=== PATIENT | male | born 1945 | race Caucasian/White ===

== ENCOUNTER 2021-03-08 07:46 | Emergency (ER) | payer MEDICARE, OTHER ==
[~2021-03-08] VITALS: Ht 175 cm; Wt 81.0 kg
--- OUTSIDE RECORDS SUMMARY | 2021-03-08 08:00 | XMS REPORT | Clinical Summary ---
Author Author [facility] Organization [facility] Address Unknown Phone Unavailable Care Team Providers Care Page Technician Name Role Phone PCP Unavailable Allergies Not on File Medications Not on file Active Problems Not on file Social History Date Tobacco Use Types Packs/Day Years Used Never Assessed Sex Assigned at Date Recorded Not on file Last Filed Vital Signs Not on file Plan of Treatment Not on file Results Not on filefrom Last 3 Months
--- NOTE | 2021-03-08 08:11 | ED Chest Pain ---
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 She states that the chest pain continued to worsen and was a 10 out of 10 when it was at its worst. 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 His did give him an 325 mg aspirin 30 minutes prior to arrival in the ED and they drove here to the emergency department. He states that the chest pain is now aching at 3 or 4 out of 10. 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 Does not radiate or move anywhere. He denies any nausea or vomiting. He denies any shortness of breath or cough. He denies having chest pain like this in the past or having heart problems that he is aware of. He denies taking any medications or having any allergies to medications. He states about a month ago he got a booster for Covid as well as pneumonia. He denies having fevers or chills. Timing/Duration: 1-3 hours (since 6 am) Severity/Quality: severe, aching (now it is an ache in his chest. 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 (325 mg aspirin at 0715) NTG SL STILL OPERATOR BATCH OR CONTINUOUS: No Associated Symptoms: No abdominal pain, No back pain, No diaphoresis, No dizziness, No edema, No fatigue, No fever/chills, No headache, No heartburn, No nausea/vomiting, No rash, No shortness of breath, No swelling/lump in chest, No syncope, No weakness (SOHEILA CHONG MD) Allergies and Home Medications Allergies Coded Allergies: No Known Drug Allergies (Unverified , 03/08/21) Patient Home Medication List Home Medication List Reviewed: Yes (SOHEILA CHONG MD) Review of Systems Review of Systems Constitutional: No chills, No fever EENTM: No Symptoms Reported Respiratory: No Symptoms Reported Cardiovascular: See HPI, Chest Pain; Denies Irregular Heart Rate, Denies Palpitations, Denies Syncope Gastrointestinal: No Symptoms Reported Genitourinary: No Symptoms Reported Musculoskeletal: no symptoms reported Skin: no symptoms reported Psychiatric/Neurological: No Symptoms Reported; Denies Numbness, Denies Paresthesia Endocrine: No Symptoms Reported (SOHEILA CHONG MD) Past Elrwool-Bnquqz-Nbzbfl Hx Patient Social History Tobacco Use?: No Smoking Status: Former Smoker (SOHEILA CHONG MD) Past Medical History Surgeries: Yes Abdominal (Horse inj to abd./intestine as child) Respiratory: No Cardiac: No Neurological: No Genitourinary: No Gastrointestinal: No Musculoskeletal: No Endocrine: No HEENT: No Psychosocial: No Integumentary: No (SOHEILA CHONG MD) Family Medical History Reviewed and Corrections made (SOHEILA CHONG MD) Heart Disease, CAD Over 55 Years Old (Parents) (SOHEILA CHONG MD) Physical Exam Vital Signs Vital Signs - First Documented 03/08/21 03/08/21 07:46 08:32 Temp 35.5 Pulse 64 Resp 18 B/P (MAP) 166/97 (120) Pulse Ox 95 O2 Delivery Room Air O2 Flow Rate 2.00 (MART MILLER DO) Vital Signs Capillary Refill : (SOHEILA CHONG MD) Height, Weight, BMI Height: '" Weight: lbs. oz. 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 Norm as Tested Skin: Normal Color, Warm/Dry (SOHEILA CHONG MD) Images 1 - central substernal cp (SOHEILA CHONG MD) Progress/Results/Core Measures Results/Orders Lab Results Laboratory Tests Test 03/08/21 08:00 03/08/21 10:46 Range/Units White Blood Count 5.6 4.3-11.0 10^3/uL Red Blood Count 4.95 4.30-5.52 10^6/uL Hemoglobin 15.6 13.3-17.7 g/dL Hematocrit 45 40-54 % Mean Corpuscular Volume 91 80-99 fL Mean Corpuscular Hemoglobin 32 25-34 pg Mean Corpuscular Hemoglobin Concent 35 32-36 g/dL Red Cell Distribution Width 13.2 10.0-14.5 % Platelet Count 247 130-400 10^3/uL Mean Platelet Volume 8.8 L 9.0-12.2 fL Immature Granulocyte % (Auto) 0 % Neutrophils (%) (Auto) 58 42-75 % Lymphocytes (%) (Auto) 31 12-44 % Monocytes (%) (Auto) 8 0-12 % Eosinophils (%) (Auto) 2 0-10 % Basophils (%) (Auto) 1 0-10 % Neutrophils # (Auto) 3.2 1.8-7.8 X 10^3 Lymphocytes # (Auto) 1.7 1.0-4.0 X 10^3 Monocytes # (Auto) 0.5 0.0-1.0 X 10^3 Eosinophils # (Auto) 0.1 0.0-0.3 10^3/uL Basophils # (Auto) 0.1 0.0-0.1 10^3/uL Immature Granulocyte # (Auto) 0.0 0.0-0.1 10^3/uL Prothrombin Time 12.9 12.2-14.7 SEC INR Comment 0.9 0.8-1.4 Activated Partial Thromboplast Time 26 24-35 SEC D-Dimer 0.43 0.00-0.49 UG/ML Sodium Level 142 135-145 MMOL/L Potassium Level 3.9 3.6-5.0 MMOL/L Chloride Level 105 98-107 MMOL/L Carbon Dioxide Level 23 21-32 MMOL/L Anion Gap 14 5-14 MMOL/L Blood Urea Nitrogen 12 7-18 MG/DL Creatinine 0.99 0.60-1.30 MG/DL Estimat Glomerular Filtration Rate 73 BUN/Creatinine Ratio 12 Glucose Level 114 H 70-105 MG/DL Calcium Level 10.0 8.5-10.1 MG/DL Corrected Calcium 9.6 8.5-10.1 MG/DL Magnesium Level 2.0 1.6-2.4 MG/DL Total Bilirubin 0.5 0.1-1.0 MG/DL Aspartate Amino Transf (AST/SGOT) 29 5-34 U/L Alanine Aminotransferase (ALT/SGPT) 19 0-55 U/L Alkaline Phosphatase 63 40-136 U/L Troponin I < 0.30 < 0.30 <0.30 NG/ML Pro-B-Type Natriuretic Peptide 69.8 <75.0 PG/ML Total Protein 7.2 6.4-8.2 GM/DL Albumin 4.5 3.2-4.5 GM/DL Lipase 32 8-78 U/L (MART MILLER DO) My Orders Orders - MART MILLER DO Troponin I Fs (03/08/21 10:43) Nitroglycerin Ointment (Nitrobid Ointme (03/08/21 12:00) (MART MILLER DO) Medications Given in ED Current Medications Medications Dose Ordered Sig/[place] Route Start Time Stop Time Status Last Admin Dose Admin Iohexol 100 ml ONCE ONCE IV 03/08/21 09:00 03/08/21 09:01 DC 03/08/21 09:37 100 ML Morphine Sulfate 2 mg ONCE ONCE IVP 03/08/21 08:15 03/08/21 08:16 DC 03/08/21 08:14 2 MG Nitroglycerin 0.4 mg UD PRN SL 03/08/21 08:15 03/08/21 08:35 0.4 MG Nitroglycerin 1 inch ONCE ONCE TOP 03/08/21 12:00 03/08/21 12:01 DC 03/08/21 12:02 1 INCH Sodium Chloride 10 ml NEEDED PRN IV 03/08/21 09:00 03/08/21 09:38 10 ML Sodium Chloride 100 ml ONCE ONCE IV 03/08/21 09:00 03/08/21 09:01 DC 03/08/21 09:38 100 ML (MART MILLER DO) Vital Signs/I&O 03/08/21 03/08/21 07:46 08:32 Temp 35.5 Pulse 64 Resp 18 B/P (MAP) 166/97 (120) Pulse Ox 95 94 O2 Delivery Room Air Nasal Cannula O2 Flow Rate 2.00 (MART MILLER DO) Progress Progress Note #1: Progress Note Electrocardiogram obtained on arrival to the room. This did not demonstrate any acute ST elevation. Patient did receive 325 mg of aspirin approximately 30 minutes prior to arrival in the ED. He is reporting his pain is at a 3 or 4 out of 10 so will try sublingual nitroglycerin to see if that helps with both slightly elevated blood pressure as well as his complaint of chest pain. Obtain blood work as well as the electrocardiogram and chest x-ray to further evaluate his complaint of chest pain. Cardiac telemetry monitoring to observe his cardiac rhythm and monitor for arrhythmias or acute changes in his telemetry. Differential diagnosis includes acute coronary syndrome, myocardial infarction, aortic aneurysm, pulmonary embolism, hypertensive urgency Progress Note #2: Time: 08:45 Progress Note The chest x-ray did not demonstrate any acute effusion or infiltrate however it appeared that his aorta was possibly tortuous on my review of the film. I added a CT angiogram to evaluate his aorta and pulmonary arteries. He did have an oxygen saturation drop into the upper 80s so he was placed on O2 at 3 L/min to bring him up above 91%. He denied any shortness of breath with this. He was given a second sublingual nitroglycerin at 8:35 AM since his chest pain and gone from 4 down to 2 with the first sublingual nitroglycerin. He had no acute abno rmality on his CBC. Awaiting electrolytes and coags with D-dimer. He denies any calf pain however with his oxygen desaturation and tortuous appearing aorta on my review of his chest x-ray I still will order a CT angiogram. Care of the patient was reviewed and passed over to Dr. Miller at shift change. (SOHEILA CHONG MD) Initial ECG Impression Date: Mar 08, 2021 Initial ECG Impression Time: 07:49 Initial ECG Rate: 55 Initial ECG Rhythm: Normal Sinus Initial ECG Comparisson: No Previous ECG Available Comment Normal sinus rhythm with a heart rate of 55 bpm. Borderline left axis deviation. HI interval 188 ms. QT interval 426 ms with a QTc interval 408 ms. No prior tracing available for comparison. No acute ST elevations. (SOHEILA CHONG MD) Diagnostic Imaging Diagonstic Imaging: Xray Plain Films/CT/US/NM/MRI: chest Comments NAME: JUAN PRIETO [facility] REC#: [id number] PT STATUS: REG ER : 1945 PHYSICIAN: SOHEILA CHONG MD ADMIT DATE: 03/08/21/ER FS Draft Date of Exam:03/08/21 CHEST 1 VIEW AP/PA ONLY EXAMINATION: Chest 1 view HISTORY: Substernal chest pain COMPARISON: None available. FINDINGS: The lungs are clear without edema or pneumonia. No pleural effusion or pneumothorax. Heart size is normal. IMPRESSION: 1. Clear lungs. Dictated on workstation # [id number] Dict: 03/08/21 0812 Trans: 03/08/21 0816 [facility] [id number] Interpreted by: JUANITA DELGADO MD Electronically signed by: Reviewed: Reviewed by Ms Diagonstic Imaging: CT (Angiography) Plain Films/CT/US/NM/MRI: chest Comments [facility] [place] NAME: JUAN PRIETO [facility] REC#: [id number] PT STATUS: DEP ER : 1945 PHYSICIAN: SOHEILA CHONG MD ADMIT DATE: 03/08/21/ER FS Signed Date of Exam:03/08/21 CT ANGIO CHEST W PROCEDURE: CT angiography of the chest with contrast. TECHNIQUE: Multiple contiguous axial images were obtained through the chest after uneventful bolus administration of intravenous contrast. 3D reconstructed CTA MIP acquisitions were also performed. Auto Exposure Controls were utilized during the CT exam to meet ALARA standards for radiation dose reduction. INDICATION: Substernal chest pain. COMPARISON: None FINDINGS: There is no intraluminal filling defect within the pulmonary arteries to the level of the 1st subsegmental division. Thoracic aorta is suboptimally opacified. There is mild scattered calcified atherosclerosis, but based on NASCET criteria, there is no focal significant stenosis. There is no convincing evidence of dissection. Ascending thoracic aorta is aneurysmally dilated, as it measures 4.7 cm in diameter. Heart size is within normal limits. There is no large pericardial effusion. There is mild scattered calcified coronary atherosclerosis. No pathologically enlarged or morphologically abnormal adenopathy is seen within the mediastinum, lori, nor axilla. Evaluation of the lung medrano demonstrates no acute abnormality. Lungs are clear. There is no focal consolidation, large effusion, no pneumothorax. No suspicious pulmonary nodules or masses are seen. Osseous structures show no acute abnormalities. Age-related degenerative changes are noted. Included portions of the upper abdomen show no additional acute abnormalities. IMPRESSION: 1. No acute pulmonary embolus. 2. No other acute cardiopulmonary process. 3. Aneurysmal dilatation of the ascending thoracic aorta. Dictated by: Dictated on workstation # [id number] Dict: 03/08/21915 Trans: 03/09/21816 [facility] [id number] Interpreted by: BENJAMIN DIAS MD Electronically signed by: BENJAMIN DIAS MD 03/09/21816 Reviewed: Reviewed by Me (SOHEILA CHONG MD) Transfer of Care Time: 08:45 Care transferred to: Dr. Mart Miller (SOHEILA CHONG MD) Departure Communication (Admissions) CTA chest: No findings of PE, thoracic aneurysm noted per radiology report. Care assumed from preceding ER provider. I reviewed H&P, lab, EKG and imaging and agree with previous assessment. Patient with atypical chest pain, hypoxia and shortness of breath. No findings of PE on CT. Repeat troponin negative. Possible incidental thoracic aortic aneurysm, D-dimer negative. Low index of suspicion for dissection, but still not fully excluded at this time. Patient is bradycardic and hypertensive. Nitropaste given. Anticipate admission/transfer to closest comprehensive cardiac care facility. Patient accepted by Dr. Palomo to [facility] at 14:00 (MART MILLER DO) Impression Primary Impression: Substernal chest pain Additional Impressions: Acute respiratory failure with hypoxia Thoracic aneurysm without mention of rupture Bradycardia Family history of coronary artery disease Disposition: [facility] Condition: Stable Transfer Transfer Facility: [place], [place] Method of Transfer: EMS (SOHEILA CHONG MD) Transfer Reason: Exceeds level of care Time Spoke to Accepting Phy: 14:00 Transfer Progress Notes Patient accepted to [facility] (MART MILLER DO) Departure-Patient Inst. Referrals: CHAD MIRZA MD (PCP) Primary Care Physician SOHEILA CHONG MD Mar 08, 2021 08:11 MART MILLER DO Mar 08, 2021 12:05
[2021-03-08 08:12] LABS: WHITE BLOOD COUNT 5.6 10^3/uL (4.3-11.0)
[2021-03-08 08:13] LABS: BASOPHILS % (AUTO) 1 % (0-10); EOSINOPHILS % (AUTO) 2 % (0-10); HEMATOCRIT 45 % (40-54); HEMOGLOBIN 15.6 g/dL (13.3-17.7); LYMPHOCYTES % (AUTO) 31 % (12-44); MEAN CORPUSCULAR HEMOGLOBIN 32 pg (25-34); MEAN CORPUSCULAR HGB CONC 35 g/dL (32-36); MEAN CORPUSCULAR VOLUME 91 fL (80-99); MEAN PLATELET VOLUME 8.8 fL (9.0-12.2); MONOCYTES % (AUTO) 8 % (0-12); NEUTROPHILS % (AUTO) 58 % (42-75); PLATELET COUNT 247 10^3/uL (130-400)
[2021-03-08 08:14] LABS: BASOPHILS # (AUTO) 0.1 10^3/uL (0.0-0.1); EOSINOPHILS # (AUTO) 0.1 10^3/uL (0.0-0.3); LYMPHOCYTES # (AUTO) 1.7 X 10^3 (1.0-4.0); MONOCYTES # (AUTO) 0.5 X 10^3 (0.0-1.0); NEUTROPHILS # (AUTO) 3.2 X 10^3 (1.8-7.8)
[2021-03-08] MEDS: NITROGLYCERIN 0.4 MG SL TABS BTL 25'S SL PRN ×2 (08:14→08:35)
[2021-03-08] MEDS ORDERED: morphine INJ 10 MG/ML 1ML (SYR OR VIAL) IVP ONE (08:15)
--- NOTE | 2021-03-08 08:17 | Diagnostic Imaging Report ---
EXAMINATION: Chest 1 view HISTORY: Substernal chest pain COMPARISON: None available. FINDINGS: The lungs are clear without edema or pneumonia. No pleural effusion or pneumothorax. Heart size is normal. IMPRESSION: 1. Clear lungs. Dictated by: Dictated on workstation # [id number]
[2021-03-08 08:24] LABS: INR 0.9 (0.8-1.4); PROTHROMBIN TIME PATIENT 12.9 SEC (12.2-14.7)
[2021-03-08 08:56] LABS: BILIRUBIN,TOTAL 0.5 MG/DL (0.1-1.0); CREATININE SERUM 0.99 MG/DL (0.60-1.30); POTASSIUM 3.9 MMOL/L (3.6-5.0)
[2021-03-08 08:57] LABS: ALBUMIN 4.5 GM/DL (3.2-4.5); TOTAL PROTEIN 7.2 GM/DL (6.4-8.2)
[2021-03-08] MEDS ORDERED: IOHEXOL 350 MG/ML 100 ML (OMNIPAQUE 350) VIAL IV ONE (09:00)
[2021-03-08] MEDS ORDERED: HOLD METFORMIN - RECEIVED CONTRAST 20 ML VIAL IV SCH (09:00)
[2021-03-08] MEDS ORDERED: NS 100 ML (IVPB) BAG IV ONE (09:00)
[2021-03-08] MEDS ORDERED: CATHETER FLUSH 10 ML SYR IV PRN (09:00)
--- NOTE | 2021-03-08 09:22 | Diagnostic Imaging Report ---
PROCEDURE: CT angiography of the chest with contrast. TECHNIQUE: Multiple contiguous axial images were obtained through the chest after uneventful bolus administration of intravenous contrast. 3D reconstructed CTA MIP acquisitions were also performed. Auto Exposure Controls were utilized during the CT exam to meet ALARA standards for radiation dose reduction. INDICATION: Substernal chest pain. COMPARISON: None FINDINGS: There is no intraluminal filling defect within the pulmonary arteries to the level of the 1st subsegmental division. Thoracic aorta is suboptimally opacified. There is mild scattered calcified atherosclerosis, but based on NASCET criteria, there is no focal significant stenosis. There is no convincing evidence of dissection. Ascending thoracic aorta is aneurysmally dilated, as it measures 4.7 cm in diameter. Heart size is within normal limits. There is no large pericardial effusion. There is mild scattered calcified coronary atherosclerosis. No pathologically enlarged or morphologically abnormal adenopathy is seen within the mediastinum, lori, nor axilla. Evaluation of the lung medrano demonstrates no acute abnormality. Lungs are clear. There is no focal consolidation, large effusion, no pneumothorax. No suspicious pulmonary nodules or masses are seen. Osseous structures show no acute abnormalities. Age-related degenerative changes are noted. Included portions of the upper abdomen show no additional acute abnormalities. IMPRESSION: 1. No acute pulmonary embolus. 2. No other acute cardiopulmonary process. 3. Aneurysmal dilatation of the ascending thoracic aorta. Dictated by: Dictated on workstation # [id number]
[2021-03-08] MEDS ORDERED: NITROGLYCERIN 2% OINT 1 GM UNIT DOSE PACKET TOP ONE (12:00)
[2021-03-08 14:55] VITALS: BP 129/77
== END 2021-03-08 16:02 | disposition short-term general hospital (02) ==
LOC: ER FS 07:57
DX: R07.89 Other chest pain (principal); J96.01 Acute respiratory failure with hypoxia; I71.2 Thoracic aortic aneurysm, without rupture; R00.1 Bradycardia, unspecified; Z87.891 Personal history of nicotine dependence; Z82.49 Family history of ischemic heart disease and other diseases of the circulatory system
CPT/HCPCS: 36415; 71045; 71275; 80053; 83690; 83735; 83880; 84484; 85025; 85379; 85610; 85730; 93005; 93041; 96374

== ENCOUNTER 2021-04-01 17:07 | Emergency (ER) | payer MEDICARE ==
[~2021-04-01] VITALS: Ht 175.2 cm; Wt 75.0 kg
[2021-04-01 18:14] VITALS: BP 122/72
[2021-04-01] MEDS ORDERED: NS IV 1000 ML 1,000 ML IV SCH ×2 (18:15→22:45)
--- NOTE | 2021-04-01 18:38 | Diagnostic Imaging Report ---
EXAM: Chest 1 view, AP/PA only INDICATION: Fever. Abdominal aortic aneurysm surgery. COMPARISON: 03/08/2021. FINDINGS: Low lung volumes. Cardiomegaly. Normal pulmonary vascularity. Sternotomy with CABG. Elevation of the left hemidiaphragm. Mild atelectasis or infiltrate in the left lung base. No pleural effusion or pneumothorax. IMPRESSION: Low lung volumes with elevation of the left hemidiaphragm. Left basilar atelectasis or infiltrate. Dictated by: Dictated on workstation # [id number]
[2021-04-01 18:39] LABS: BILIRUBIN,URINE NEGATIVE (NEGATIVE); CLARITY,URINE CLEAR; COLOR,URINE YELLOW; GLUCOSE, URINE (UA) NEGATIVE (NEGATIVE); KETONES,URINE NEGATIVE (NEGATIVE); LEUKOCYTE ESTERASE ,URINE NEGATIVE (NEGATIVE); NITRITE,URINE NEGATIVE (NEGATIVE); PROTEIN,URINE NEGATIVE (NEGATIVE)
[2021-04-01 18:49] LABS: BASOPHILS # (AUTO) 0.1 10^3/uL (0.0-0.1); BASOPHILS % (AUTO) 1 % (0-10); EOSINOPHILS % (AUTO) 0 % (0-10); HEMATOCRIT 40 % (40-54); HEMOGLOBIN 12.2 g/dL (13.3-17.7); LYMPHOCYTES # (AUTO) 0.4 10^3/uL (1.0-4.0); LYMPHOCYTES % (AUTO) 9 % (12-44); MEAN CORPUSCULAR HEMOGLOBIN 29 pg (25-34); MEAN CORPUSCULAR HGB CONC 31 g/dL (32-36); MEAN CORPUSCULAR VOLUME 94 fL (80-99); MEAN PLATELET VOLUME 8.3 fL (9.0-12.2); MONOCYTES # (AUTO) 0.3 10^3/uL (0.0-1.0); MONOCYTES % (AUTO) 7 % (0-12); NEUTROPHILS # (AUTO) 3.8 10^3/uL (1.8-7.8); NEUTROPHILS % (AUTO) 82 % (42-75); PLATELET COUNT 327 10^3/uL (130-400); WHITE BLOOD COUNT 4.6 10^3/uL (4.3-11.0)
[2021-04-01 18:50] LABS: BACTERIA,URINE NEGATIVE /HPF; WBC,URINE 0-2 /HPF
[2021-04-01 18:55] LABS: ALBUMIN 3.9 GM/DL (3.2-4.5); POTASSIUM 5.2 MMOL/L (3.6-5.0)
[2021-04-01 18:56] LABS: CALCIUM 9.4 MG/DL (8.5-10.1)
[2021-04-01] MEDS ORDERED: ACETAMINOPHEN 325 MG TABLET PO STA (18:56)
[2021-04-01 18:58] LABS: TOTAL PROTEIN 8.1 GM/DL (6.4-8.2)
[2021-04-01 18:59] LABS: BILIRUBIN,TOTAL 0.9 MG/DL (0.1-1.0)
[2021-04-01 19:01] LABS: CREATININE SERUM 1.11 MG/DL (0.60-1.30)
[2021-04-01 19:14] LABS: INR 1.2 (0.8-1.4); PROTHROMBIN TIME PATIENT 15.6 SEC (12.2-14.7)
--- NOTE | 2021-04-01 19:28 | ED General ---
General Chief Complaint: General Problems/Pain Stated Complaint: OPEN HEART SURG,FEVER,DX PNA Nursing Triage Note: TO ED PER W/C WITH DAUGHTER IN LAW REPORTS ON MAR 12 HAD TRIPLE A REPAIR AT [facility] AND [facility]. WAS DISCHARGE ON MAR 22 AT DAY 6 HAD POS SPUTUM CULTURE HAD IV ANTIBIOTICS WAS SENT HOME WITH BACTRIM. CALLED DR MOBILE SALES CONSULTANT AT [facility] WAS TOLD TO COME HERE TO BE SEEN. (SALOME FITZPATRICK) History of Present Illness Date Seen by Provider: Apr 01, 2021 Time Seen by Provider: 18:20 Initial Comments 75-year-old male presents for shortness of breath, SaO2 in upper 80s when ambulating, and fever. No tylenol or ibuprofen were given DYNAMICIST. He was treated at [facility] for a thoracic AA on March 12 his sputum came back with bacterial growth and he was started on vancomycin he was discharged on March 22 on Bactrim twice daily, last dose was taken this morning. He was supposed to have labs drawn 3 days ago but they were unable to obtain blood for his CBC. His family attempted to contact the cardiothoracic surgeon at [facility] and he was referred to come here for work-up. He is taking aspirin 81 mg once daily and is not on anticoagulants. He received his COVID vaccines in May and booster in Jan. Flu vaccine in Jan. He was around family for holidays. Timing/Duration: 4-6 Hours Severity: Moderate Associated Systoms: No Chest Pain, No Cough; Fever/Chills; No Nausea/Vomiting (SALOME FITZPATRICK) Allergies and Home Medications Allergies Coded Allergies: No Known Drug Allergies (Unverified , 03/08/21) Patient Home Medication List Home Medication List Reviewed: Yes (SALOME FITZPATRICK) Azithromycin (Azithromycin) 250 Mg Tablet, 250 MG PO UD Prescribed by: SALOME FITZPATRICK on 04/01/21 3396 Doxycycline Hyclate (Doxycycline Hyclate) 100 Mg Tablet, 100 MG PO BID Prescribed by: SALOME FITZPATRICK on 04/01/21 7842 Review of Systems Review of Systems Constitutional: see HPI, chills, fever, malaise EENTM: see HPI, no symptoms reported Respiratory: see HPI, dyspnea on exertion Cardiovascular: no symptoms reported, see HPI; No chest pain Gastrointestinal: no symptoms reported, see HPI (SALOME FITZPATRICK) All Other Systems Reviewed Negative Unless Noted: Yes (SALOME FITZPATRICK) Past Imdlczv-Bpyged-Wxumiy Hx Patient Social History Tobacco Use?: No Alcohol Use?: No (SALOME FITZPATRICKP) Immunizations Up To Date First/Initial COVID19 Vaccinat: MAY Second COVID19 Vaccination Amado: MAY (SALOME FITZPATRICK) Past Medical History Surgeries: Yes Abdominal Respiratory: No Currently Using CPAP: No Currently Using BIPAP: No Cardiac: No Aneurysm Neurological: No Genitourinary: No Gastrointestinal: No Musculoskeletal: No Endocrine: No HEENT: No Psychosocial: No Integumentary: No (SALOME FITZPATRICKP) Family Medical History Reviewed Nursing Family Hx (SALOME FITZPATRICK GILMAR) Heart Disease, CAD Over 55 Years Old (SALOME FITZPATRICK GILMAR) Physical Exam Vital Signs Vital Signs - First Documented 04/01/21 18:14 Temp 38.4 Pulse 81 B/P (MAP) 122/72 (89) Pulse Ox 97 (ESME ROSS DO) Vital Signs Capillary Refill : Less Than 3 Seconds (SALOME FITZPATRICK) Height, Weight, BMI Height: '" Weight: lbs. oz. kg; 24.00 BMI Method: General Appearance: WD/WN, Cachetic HEENT: PERRL/EOMI, TMs Normal, Normal ENT Inspection, Pharynx Normal Neck: Full Range of Motion, Normal Inspection, Non Tender, Supple Respiratory: Chest Non Tender, Lungs Clear, Normal Breath Sounds, No Respiratory Distress, Decreased Breath Sounds Cardiovascular: Regular Rate, Rhythm, No Edema, No Murmur, Normal Peripheral Pulses Gastrointestinal: Normal Bowel Sounds, Non Tender, Soft Extremity: Normal Capillary Refill, Normal Inspection, Normal Range of Motion, Non Tender Neurologic/Psychiatric: Alert, Oriented x3, No Motor/Sensory Deficits, Normal Mood/Affect Skin: Normal Color, Warm/Dry, Other (chest incision well healed with no erythem, warmth or drainage. ) (SALOME FITZPATRICK GILMAR) Focused Exam Lactate Level 04/01/21 18:50: Lactic Acid Level 1.21 (ESME ROSS DO) Lactic Acid Level Laboratory Tests Test 04/01/21 18:50 Lactic Acid Level 1.21 MMOL/L (0.50-2.00) (ESME ROSS DO) Progress/Results/Core Measures Suspected Sepsis SIRS Temperature: Pulse: 81 Respiratory Rate: Laboratory Tests 1/2/22 18:38: White Blood Count 4.6 Blood Pressure 122 /72 Mean: 89 04/01/21 18:50: Lactic Acid Level 1.21 Laboratory Tests 04/01/21 18:38: Creatinine 1.11, Platelet Count 327, Total Bilirubin 0.9 04/01/21 18:50: INR Comment 1.2 (NANETTE,SALOME FOSTER CARE WORKER) Results/Orders Lab Results Laboratory Tests Test 04/01/21 18:36 04/01/21 18:38 04/01/21 18:48 04/01/21 18:50 Range/Units Urine Color YELLOW Urine Clarity CLEAR Urine pH 6.0 5-9 Urine Specific [place] >=1.030 1.016-1.022 Urine Protein NEGATIVE NEGATIVE Urine Glucose (UA) NEGATIVE NEGATIVE Urine Ketones NEGATIVE NEGATIVE Urine Nitrite NEGATIVE NEGATIVE Urine Bilirubin NEGATIVE NEGATIVE Urine Urobilinogen 1.0 < = 1.0 MG/DL Urine Leukocyte Esterase NEGATIVE NEGATIVE Urine RBC (Auto) TRACE-I H NEGATIVE Urine RBC NONE /HPF Urine WBC 0-2 /HPF Urine Squamous Epithelial Cells NONE /HPF Urine Renal Epithelial Cells NONE /HPF Urine Crystals NONE /LPF Urine Bacteria NEGATIVE /HPF Urine Casts NONE /LPF Urine Mucus MODERATE H /LPF Urine Culture Indicated CULTURE PENDING White Blood Count 4.6 4.3-11.0 10^3/uL Red Blood Count 4.23 L 4.30-5.52 10^6/uL Hemoglobin 12.2 L 13.3-17.7 g/dL Hematocrit 40 40-54 % Mean Corpuscular Volume 94 80-99 fL Mean Corpuscular Hemoglobin 29 25-34 pg Mean Corpuscular Hemoglobin Concent 31 L 32-36 g/dL Red Cell Distribution Width 14.8 H 10.0-14.5 % Platelet Count 327 130-400 10^3/uL Mean Platelet Volume 8.3 L 9.0-12.2 fL Immature Granulocyte % (Auto) 1 % Neutrophils (%) (Auto) 82 H 42-75 % Lymphocytes (%) (Auto) 9 L 12-44 % Monocytes (%) (Auto) 7 0-12 % Eosinophils (%) (Auto) 0 0-10 % Basophils (%) (Auto) 1 0-10 % Neutrophils # (Auto) 3.8 1.8-7.8 10^3/uL Lymphocytes # (Auto) 0.4 L 1.0-4.0 10^3/uL Monocytes # (Auto) 0.3 0.0-1.0 10^3/uL Eosinophils # (Auto) 0.0 0.0-0.3 10^3/uL Basophils # (Auto) 0.1 0.0-0.1 10^3/uL Immature Granulocyte # (Auto) 0.0 0.0-0.1 10^3/uL Sodium Level 136 135-145 MMOL/L Potassium Level 5.2 H 3.6-5.0 MMOL/L Chloride Level 104 98-107 MMOL/L Carbon Dioxide Level 19 L 21-32 MMOL/L Anion Gap 13 5-14 MMOL/L Blood Urea Nitrogen 19 H 7-18 MG/DL Creatinine 1.11 0.60-1.30 MG/DL Estimat Glomerular Filtration Rate 64 BUN/Creatinine Ratio 17 Glucose Level 105 70-105 MG/DL Calcium Level 9.4 8.5-10.1 MG/DL Corrected Calcium 9.5 8.5-10.1 MG/DL Total Bilirubin 0.9 0.1-1.0 MG/DL Aspartate Amino Transf (AST/SGOT) 47 H 5-34 U/L Alanine Aminotransferase (ALT/SGPT) 19 0-55 U/L Alkaline Phosphatase 63 40-136 U/L Troponin I 0.042 H <0.028 NG/ML C-Reactive Protein High Sensitivity 3.99 H 0.00-0.50 MG/DL B-Type Natriuretic Peptide 437.1 H <100.0 PG/ML Total Protein 8.1 6.4-8.2 GM/DL Albumin 3.9 3.2-4.5 GM/DL Influenza Type A Antigen NEGATIVE NEGATIVE Influenza Type B Antigen NEGATIVE NEGATIVE SARS-CoV-2 RNA (RT-PCR) Not Detected Negative Prothrombin Time 15.6 H 12.2-14.7 SEC INR Comment 1.2 0.8-1.4 Activated Partial Thromboplast Time 31 24-35 SEC D-Dimer 8.77 H 0.00-0.49 UG/ML Lactic Acid Level 1.21 0.50-2.00 MMOL/L (INES ROSSA Dori DO) Medications Given in ED Current Medications Medications Dose Ordered Sig/[place] Route Start Time Stop Time Status Last Admin Dose Admin Cefepime HCl 1000 mg/Sodium Chloride 50 ml @ 100 mls/hr ONCE ONCE IV 04/01/21 20:45 04/01/21 21:14 DC 04/01/21 20:42 100 MLS/HR Iohexol 150 ml ONCE ONCE IV 04/01/21 20:30 04/01/21 20:31 DC 04/01/21 20:54 67 ML Iohexol 150 ml ONCE ONCE IV 04/01/21 23:45 04/01/21 23:46 DC 04/01/21 23:39 75 ML Sodium Chloride 10 ml NEEDED PRN IV 04/01/21 20:30 04/02/21 00:19 DC 04/01/21 23:39 10 ML Sodium Chloride 100 ml ONCE ONCE IV 04/01/21 20:30 04/01/21 20:31 DC 04/01/21 20:54 80 ML Sodium Chloride 100 ml ONCE ONCE IV 04/01/21 23:45 04/01/21 23:46 DC 04/01/21 23:39 80 ML (CODY,ESME K DO) Vital Signs/I&O 04/01/21 18:14 Temp 38.4 Pulse 81 B/P (MAP) 122/72 (89) Pulse Ox 97 (CODY,ESME K DO) Vital Signs/I&O Capillary Refill : Less Than 3 Seconds (SALOME FITZPATRICK) Blood Pressure Mean: 89 Progress Note : Time: 18:20 Progress Note Patient seen and evaluated, will obtain labs, chest x-ray, EKG, Covid and flu testing, Tylenol 650 mg orally for fever, normal saline 1 L per IV. Sepsis work- up initiated. 1909 Temp down to 37.8, HR 80s, B/P 110/70s 1999 no complaints, labs show elevated D Dimer 8.77 and slight elevation in Troponin. Will get CT angio chest and abd. Flu and COVID neg. Cefepime IV for pneumonia [address] Dow from Radiology, due to fluid around repair site, he would like to get post contrast CT images to determine if extravisation is present or not. Discussed with patient and family, agreeable. [address] Dow, no leakage of contrast at repair site. Would need CT angio with PE protocol to be 100% certain. Creatinine 1.11, will give NS 1 L per IV. [address] Mistry, he reviewed the CTA that was clouded, discussed labs and assessment. Would like to proceed with the CTA chest for PE. Otherwise, antibiotics for Pneumonia and evaluate in his office tomorrow at 10:00 am. discussed with patient and family, agreeable to this. VS have remained stable, SaO2 92-96% on RA, no complaints. [address] 04/02/[address] isabel chest neg for PE. Discharge instructions and return precautions reviewed with the patient and family. All questions answered. (SALOME FITZPATRICK) ECG Initial ECG Impression Date: Apr 01, 2021 Initial ECG Impression Time: 19:40 Initial ECG Rate: 79 Initial ECG Rhythm: Normal Sinus Initial ECG Intervals: Normal Initial ECG Intervals [place] 172, QRSD 110, QT 361, QTc 414. [place] P- 1, QRS -20, T- 43. Initial ECG Impression: Normal Initial ECG Comparisson: Unchanged (SALOME FITZPATRICK) Diagnostic Imaging Diagonstic Imaging: Xray Plain Films/CT/US/NM/MRI: chest Comments NAME: JUAN PRIETO [facility] REC#: [id number] PT STATUS: REG ER : 1945 PHYSICIAN: SALOME FITZPATRICK ADMIT DATE: 04/01/21/ER Signed Date of Exam:04/01/21 CHEST 1 VIEW, AP/PA ONLY EXAM: Chest 1 view, AP/PA only INDICATION: Fever. Abdominal aortic aneurysm surgery. COMPARISON: 03/08/2021. FINDINGS: Low lung volumes. Cardiomegaly. Normal pulmonary vascularity. Sternotomy with CABG. Elevation of the left hemidiaphragm. Mild atelectasis or infiltrate in the left lung base. No pleural effusion or pneumothorax. IMPRESSION: Low lung volumes with elevation of the left hemidiaphragm. Left basilar atelectasis or infiltrate. Dictated by: Dictated on workstation # [id number] Dict: 04/01/211834 Trans: 04/01/211909 PJE [id number] Interpreted by: YENNIFER LOTT MD Electronically signed by: YENNIFER LOTT MD 04/01/211909 Reviewed: Reviewed by De Diagonstic Imaging: CT Plain Films/CT/US/NM/MRI: chest, abdomen Comments NAME: JUAN PRIETO [facility] REC#: [id number] PT STATUS: REG ER : 1945 PHYSICIAN: SALOME FITZPATRICK ADMIT DATE: 04/01/21/ER Signed Date of Exam:04/01/21 CT ANGIO CHEST/ABD W Clinical indication: Patient had surgery March 12, having chest pain. Questionable aortic dissection. Patient has back pain. Exam: CT angiogram of the chest and abdomen performed with 67 cc Omnipaque 350 IV contrast. Coronal and oblique MIP images of the vasculature were created to better evaluate anatomy. Auto Exposure Controls were utilized during the CT exam to meet ALARA standards for radiation dose reduction. Comparison: CT angiogram of the chest dated 03/08/2021. Findings: Chest: There are interval postoperative changes with ascending thoracic aortic aneurysm repair. There is a moderate amount of fluid around the ascending thoracic aorta. There is high density in the region of the graft of the aortic arch with some area of irregularity involving the right anterior aspect of the aortic arch. Delayed imaging of the chest was performed and this area is stable and likely represents graft material and not contrast extravasation. There is no evidence of contrast extravasation on delayed imaging. There is fat stranding in the mediastinal region. There is no evidence of dissection of the thoracic aorta. The celiac artery, SMA, bilateral renal arteries, and AYLEEN show no significant stenosis. Abdominal aorta is nonaneurysmal with no dissection. Bilateral common carotid arteries are patent. There is patchy consolidation involving the left lung base with volume loss. There is a small left pleural effusion. There is bibasilar atelectasis and/or infiltrates (left side more than the right). Motion artifact limits evaluation of the lungs. There are multiple lymph nodes in the mediastinum region seen. Largest one measures 1.3 cm x 2.2 cm in the low right paratracheal region. Patient was noted to have prominent lymph nodes on the prior study. There is no significant axillary lymphadenopathy. There are degenerative spurs involving the thoracic spine. The liver, spleen, pancreas, gallbladder and adrenal glands are unremarkable. Again seen are bilateral renal cysts. Both kidneys show no other significant abnormality. There is no intestinal obstruction. There is no intra-abdominal free air or free fluid, as visualized. There is no significant abdominal lymphadenopathy. There are degenerative spurs involving the lumbar spine. Impression: 1: There are interval postoperative changes with repair of ascending thoracic aortic aneurysm. Sternotomy wires are seen and fat stranding in the mediastinum is noted which is expected postoperatively. 2: There is a moderate amount of fluid about the ascending thoracic aorta with no evidence of contrast opacification or contrast leak. This should be followed on subsequent CT angiogram with and without contrast imaging in one month to ensure that it eventually decreases in size. 3: There is a small left pleural effusion and bibasilar atelectasis and/or infiltrate (left side more than the right). 4: The abdominal aorta, thoracic aorta and remainder of the visualized intra-abdominal vasculature structures show no evidence of aneurysm or dissection. 5: There is no acute abdominal process seen. Results of this report discussed with GILMAR Child near the time of this exam. Dictated by: Dictated on workstation # [id number] Dict: 04/01/212110 Trans: 04/01/212244 [facility] [id number] Interpreted by: LALI DOW MD Electronically signed by: LALI DOW MD 04/01/212244 Reviewed: Discussed w/Radiologist, Reviewed/Discussed (with Dr. Mistry at [facility].) Diagonstic Imaging: CT Plain Films/CT/US/NM/MRI: chest Comments NAME: JUAN PRIETO [facility] REC#: [id number] PT STATUS: REG ER : 1945 PHYSICIAN: SALOME FITZPATRICK ADMIT DATE: 04/01/21/ER Draft Date of Exam:04/01/21 CT ANGIO CHEST W Clinical indication: Patient with chest and back pain. Patient with bypass surgery on 03/12/2021. Pulmonary embolism suspected, high suspicion. Exam: CT angiogram of the chest performed with 75 cc Omnipaque 350 IV contrast. Coronal and oblique MIP images of the vasculature were created to better evaluate anatomy. Auto Exposure Controls were utilized during the CT exam to meet ALARA standards for radiation dose reduction. Comparison: CT angiogram of the chest and abdomen dated 04/01/2021. Findings: There is significant motion artifact which limits evaluation of the pulmonary arteries, lung medrano and mediastinal structures. The right and left main pulmonary arteries, bilateral subsegmental pulmonary arteries are patent with no evidence of pulmonary embolism. The proximal subsegmental pulmonary arteries are patent. The more distal pulmonary arteries are obscured and unable to evaluate the more distal pulmonary arteries for pulmonary embolism due to the motion artifact. Stable appearance of the mediastinum with postop changes and sternotomy wires. There is moderate amount of fluid adjacent to the ascending thoracic aorta with no evidence of contrast opacification. Ascending thoracic aorta aneurysm repair is noted. It is better described on comparison CT angiogram. Again noted small left pleural effusion and patchy consolidation in periphery of both lung bases with left side worse than right. There is no pneumothorax. Stable mediastinal lymphadenopathy. IMPRESSION: 1: Limited exam due to motion artifact which limits evaluation of mediastinal structures, lungs and pulmonary arteries. There is no gross evidence of pulmonary embolism seen on this exam. 2: Postop change to the chest with ascending thoracic aortic aneurysm repair. There is no evidence of contrast leakage and the moderate amount of fluid adjacent to the ascending thoracic aortic arch. 3: Patchy airspace opacities in both lung bases which may represent atelectasis versus infiltrate (left side more than the right). Stable small left pleural effusion. Dictated on workstation # [id number] Dict: 04/01/21 2347 Trans: 04/02/21 0001 ORIN [id number] Interpreted by: LALI DOW MD Electronically signed by: (SALOME FITZPATRICK) Departure Impression Primary Impression: H/O thoracic aortic aneurysm repair Additional Impression: Pneumonia Qualified Codes: J18.9 - Pneumonia, unspecified organism Disposition: HOME, SELF-CARE Condition: Stable Departure-Patient Inst. Decision time for Depature: 00:10 (SALOME FITZPARTICK) Referrals: CHAD MIRZA MD (PCP/Family) Primary Care Physician Patient Instructions: Pneumonia, Adult (DC) Add. Discharge Instructions: continue all home medications as prescribed at time of discharge from [facility]. See Dr. Sierra at [facility] 10:00 am Friday04/02/21, take lab and CT reports. Start the Doxycycline and Zpak tomorrow, for pneumonia. Follow up with Primary Care Provider, if symptoms are not improving or worsen. Return to the Emergency Dept for new, urgent health care needs. All discharge instructions reviewed with patient and/or family. Voiced understanding. Scripts Azithromycin (Azithromycin) 250 Mg Tablet 250 MG PO UD, #6 TAB TAKE 2 TABLETS ON DAY ONE THEN TAKE 1 TABLET DAILY FOR FOUR MORE DAYS Prov: SALOME FITZPATRICK 04/01/21 Doxycycline Hyclate (Doxycycline Hyclate) 100 Mg Tablet 100 MG PO BID, #20 TAB 0 Refills Prov: SALOME FITZPATRICK 04/01/21 ATTENDING PHYSICIAN NOTE: I WAS PHYSICALLY PRESENT ER PHYSICIAN WHEN THIS PATIENT WAS IN ER, BUT I WAS NOT INVOLVED IN ANY DECISION MAKING OR ANY CARE OF THIS PATIENT. (ESME ROSS DO) SALOME FITZPATRICK Apr 01, 2021 19:28 ESME ROSS DO Apr 02, 2021 03:44
[2021-04-01] MEDS ORDERED: IOHEXOL 350 MG/ML 150 ML (OMNIPAQUE 350) VIAL IV ONE ×2 (20:30→23:45)
[2021-04-01] MEDS ORDERED: HOLD METFORMIN - RECEIVED CONTRAST 20 ML VIAL IV SCH ×2 (20:30→23:45)
[2021-04-01] MEDS ORDERED: NS 100 ML (IVPB) BAG IV ONE ×2 (20:30→23:45)
[2021-04-01] MEDS ORDERED: CEFEPIME INJECTION 1,000 MG in NS (IVPB) 50 ML IV ONE (20:45)
[2021-04-01] MEDS: CATHETER FLUSH 10 ML SYR IV PRN ×2 (20:54→23:39)
--- NOTE | 2021-04-01 22:38 | Diagnostic Imaging Report ---
Clinical indication: Patient had surgery March 12, having chest pain. Questionable aortic dissection. Patient has back pain. Exam: CT angiogram of the chest and abdomen performed with 67 cc Omnipaque 350 IV contrast. Coronal and oblique MIP images of the vasculature were created to better evaluate anatomy. Auto Exposure Controls were utilized during the CT exam to meet ALARA standards for radiation dose reduction. Comparison: CT angiogram of the chest dated 03/08/2021. Findings: Chest: There are interval postoperative changes with ascending thoracic aortic aneurysm repair. There is a moderate amount of fluid around the ascending thoracic aorta. There is high density in the region of the graft of the aortic arch with some area of irregularity involving the right anterior aspect of the aortic arch. Delayed imaging of the chest was performed and this area is stable and likely represents graft material and not contrast extravasation. There is no evidence of contrast extravasation on delayed imaging. There is fat stranding in the mediastinal region. There is no evidence of dissection of the thoracic aorta. The celiac artery, SMA, bilateral renal arteries, and AYLEEN show no significant stenosis. Abdominal aorta is nonaneurysmal with no dissection. Bilateral common carotid arteries are patent. There is patchy consolidation involving the left lung base with volume loss. There is a small left pleural effusion. There is bibasilar atelectasis and/or infiltrates (left side more than the right). Motion artifact limits evaluation of the lungs. There are multiple lymph nodes in the mediastinum region seen. Largest one measures 1.3 cm x 2.2 cm in the low right paratracheal region. Patient was noted to have prominent lymph nodes on the prior study. There is no significant axillary lymphadenopathy. There are degenerative spurs involving the thoracic spine. The liver, spleen, pancreas, gallbladder and adrenal glands are unremarkable. Again seen are bilateral renal cysts. Both kidneys show no other significant abnormality. There is no intestinal obstruction. There is no intra-abdominal free air or free fluid, as visualized. There is no significant abdominal lymphadenopathy. There are degenerative spurs involving the lumbar spine. Impression: 1: There are interval postoperative changes with repair of ascending thoracic aortic aneurysm. Sternotomy wires are seen and fat stranding in the mediastinum is noted which is expected postoperatively. 2: There is a moderate amount of fluid about the ascending thoracic aorta with no evidence of contrast opacification or contrast leak. This should be followed on subsequent CT angiogram with and without contrast imaging in one month to ensure that it eventually decreases in size. 3: There is a small left pleural effusion and bibasilar atelectasis and/or infiltrate (left side more than the right). 4: The abdominal aorta, thoracic aorta and remainder of the visualized intra-abdominal vasculature structures show no evidence of aneurysm or dissection. 5: There is no acute abdominal process seen. Results of this report discussed with GILMAR Child near the time of this exam. Dictated by: Dictated on workstation # [id number]
[2021-04-01] MEDS ORDERED: AZIT250T12 PO (23:34)
[2021-04-01] MEDS ORDERED: DOXY100T2 PO (23:34)
[2021-04-01] MEDS ORDERED: CATHETER FLUSH 10 ML SYR IV PRN (23:45)
--- NOTE | 2021-04-02 00:02 | Diagnostic Imaging Report ---
Clinical indication: Patient with chest and back pain. Patient with bypass surgery on 03/12/2021. Pulmonary embolism suspected, high suspicion. Exam: CT angiogram of the chest performed with 75 cc Omnipaque 350 IV contrast. Coronal and oblique MIP images of the vasculature were created to better evaluate anatomy. Auto Exposure Controls were utilized during the CT exam to meet ALARA standards for radiation dose reduction. Comparison: CT angiogram of the chest and abdomen dated 04/01/2021. Findings: There is significant motion artifact which limits evaluation of the pulmonary arteries, lung medrano and mediastinal structures. The right and left main pulmonary arteries, bilateral subsegmental pulmonary arteries are patent with no evidence of pulmonary embolism. The proximal subsegmental pulmonary arteries are patent. The more distal pulmonary arteries are obscured and unable to evaluate the more distal pulmonary arteries for pulmonary embolism due to the motion artifact. Stable appearance of the mediastinum with postop changes and sternotomy wires. There is moderate amount of fluid adjacent to the ascending thoracic aorta with no evidence of contrast opacification. Ascending thoracic aorta aneurysm repair is noted. It is better described on comparison CT angiogram. Again noted small left pleural effusion and patchy consolidation in periphery of both lung bases with left side worse than right. There is no pneumothorax. Stable mediastinal lymphadenopathy. IMPRESSION: 1: Limited exam due to motion artifact which limits evaluation of mediastinal structures, lungs and pulmonary arteries. There is no gross evidence of pulmonary embolism seen on this exam. 2: Postop change to the chest with ascending thoracic aortic aneurysm repair. There is no evidence of contrast leakage and the moderate amount of fluid adjacent to the ascending thoracic aortic arch. 3: Patchy airspace opacities in both lung bases which may represent atelectasis versus infiltrate (left side more than the right). Stable small left pleural effusion. Dictated by: Dictated on workstation # [id number]
== END 2021-04-02 00:19 | disposition home or self-care (01) ==
LOC: EDUNIT# 17:07 → ER 17:13
DX: J18.9 Pneumonia, unspecified organism (principal); Z20.822 Contact with and (suspected) exposure to COVID-19
CPT/HCPCS: 36415; 71045; 71275; 74175; 80053; 81000; 83605; 83880; 84484; 85025; 85379; 85610; 85730; 86141; 87040; 87088; 87635; 87636; 87804; 93005; 96374